=== PATIENT | male | born 1950 | race Caucasian/White ===

== ENCOUNTER → 2020-10-15 13:15 | Outpatient (CLI) | payer MEDICARE, SELFPAY ==
[2020-10-15 15:49] LABS: Alanine Aminotransferase 19 IU/L (<50); Albumin 4.1 g/dL (3.5-5.0); Albumin Globulin Ratio 1.4 (1.0-2.8); Alkaline Phosphatase 66 U/L (38-126); Aspartate Aminotransferase 28 IU/L (17-59); BUN Creatinine Ratio 22.5 (6-22); Bilirubin Total 0.4 mg/dL (0.2-1.3); Blood Urea Nitrogen 16 mg/dL (9-20); Calcium 10.3 mg/dL (8.4-10.2); Carbon Dioxide 26 mmol/L (22-32); Chloride 106 mmol/L (98-107); Cholesterol 209 mg/dL (140-199); Estimated Glomerular Filt Rate > 60.0 mL/min (>60); Glucose 90 mg/dL (80-110); HDL Cholesterol 55 mg/dL (40-60); HEMOLYSIS < 15 (0-50); LDL Cholesterol Calculated 131 mg/dL (<100); Potassium 4.4 mmol/L (3.4-5.1); Sodium 138 mmol/L (137-145); Total Protein 7.1 g/dL (6.3-8.2); Triglycerides 114 mg/dL (35-150)
[2020-10-15 16:19] LABS: Free T4, Direct Thyroxine 0.95 ng/dL (0.78-2.19); Prostate Specific Antigen Scrn 2.04 ng/mL (0.1-4.0)
[2020-10-15 16:33] LABS: Thyroid Stimulating Hormone 0.935 uIU/mL (0.47-4.68)
== END ==
PROVIDERS: PCP Internal Medicine; Referring Provider Internal Medicine; Visit Provider Internal Medicine
DX: I10 Essential (primary) hypertension (principal); Z12.5 Encounter for screening for malignant neoplasm of prostate; I25.10 Atherosclerotic heart disease of native coronary artery without angina pectoris; E03.9 Hypothyroidism, unspecified
CPT/HCPCS: 36415; 80053; 80061; 84439; 84443; G0103

== ENCOUNTER → 2021-02-14 12:06 | Outpatient (CLI) | payer MEDICARE, SELFPAY ==
[2021-02-14 13:20] LABS: Add Manual Diff / Slide Review NO; Basophils Absolute Auto 100 /uL (0-100); Basophils Percent Auto 1.3 % (0-2); Eosinophils Absolute Auto 300 /uL (0-450); Eosinophils Percent Auto 5.1 % (2-4); Hematocrit 45.1 % (41-53); Hemoglobin 15.3 g/dL (13.5-17.5); Lymphocytes Absolute Auto 2200 /uL (1100-4500); Lymphocytes Percent Auto 32.4 % (25-40); Mean Corpuscular HGB Conc 33.9 % (30-36); Mean Corpuscular Volume 91.7 fL (80-100); Monocytes Absolute Auto 700 /uL (0-900); Monocytes Percent Auto 10.1 % (3-14); Neutrophils Absolute Auto 3400 /uL (1500-7000); Neutrophils Percent Auto 51.1 % (50-75); Platelet Count 242 X10^3/uL (150-400); Red Blood Cell Count 4.92 X10^6/uL (4.5-5.9); White Blood Cell Count 6.7 X10^3/uL (4.5-11.0)
[2021-02-14 14:02] LABS: Erythrocyte Sedimentation Rate 2 MM/HR (0-15)
[2021-02-14 14:31] LABS: Free T4, Direct Thyroxine 0.91 ng/dL (0.78-2.19)
[2021-02-14 14:45] LABS: Thyroid Stimulating Hormone 0.754 uIU/mL (0.47-4.68)
[2021-02-14 14:50] LABS: Alanine Aminotransferase 19 IU/L (<50); Albumin 4.3 g/dL (3.5-5.0); Albumin Globulin Ratio 1.5 (1.0-2.8); Alkaline Phosphatase 63 U/L (38-126); Aspartate Aminotransferase 26 IU/L (17-59); BUN Creatinine Ratio 24.4 (6-22); Bilirubin Total 0.5 mg/dL (0.2-1.3); Blood Urea Nitrogen 20 mg/dL (9-20); Calcium 10.3 mg/dL (8.4-10.2); Carbon Dioxide 27 mmol/L (22-32); Chloride 105 mmol/L (98-107); Estimated Glomerular Filt Rate > 60.0 mL/min (>60); Globulin 2.9 g/dL (1.7-4.1); Glucose 94 mg/dL (80-110); HEMOLYSIS < 15 (0-50); Potassium 4.2 mmol/L (3.4-5.1); Sodium 138 mmol/L (137-145); Total Protein 7.2 g/dL (6.3-8.2)
[2021-02-14 15:20] LABS: Carcinoembryonic Antigen 0.8 ng/mL (0.1-3.0)
== END ==
PROVIDERS: PCP Internal Medicine; Referring Provider Internal Medicine; Visit Provider Internal Medicine
DX: E03.9 Hypothyroidism, unspecified (principal); K59.00 Constipation, unspecified
CPT/HCPCS: 36415; 80053; 82378; 84439; 84443; 85025; 85651

== ENCOUNTER → 2021-04-22 13:55 | Outpatient (CLI) | payer MEDICARE, SELFPAY ==
[2021-04-22 16:21] LABS: COVID19 -Nasal RAPID Negative (Negative)
== END ==
PROVIDERS: PCP Internal Medicine; Referring Provider Student in an Organized Health Care Education/Training Program; Visit Provider Student in an Organized Health Care Education/Training Program
DX: Z01.812 Encounter for preprocedural laboratory examination (principal); Z20.822 Contact with and (suspected) exposure to COVID-19
CPT/HCPCS: 87635; C9803

== ENCOUNTER 2021-04-23 12:56 | Day surgery (SDC) | payer MEDICARE, SELFPAY ==
--- NOTE | 2021-04-23 | PATH_ITS ---
[facility] Accession Number: [id number] . 01 Material submitted: . sigmoid colon - SIGMOID POLYP . 02 Diagnosis: Sigmoid Polyp: Hyperplastic polyp. MRV 04/25/2021 1532 Local . 02 Electronically signed: . Sparkle Schumacher MD, Pathologist NPI- [id number] . 01 Gross description: . SIGMOID POLYP: Received in formalin is 1 fragment(s) of finnegan, soft tissue measuring 0.3 x 0.2 x 0.2 cm submitted entirely in 1 cassette(s) /OMAR 04/24/20212003 Local . 02 Pathologist provided ICD-10: R19.4, K59.00, K63.5 . 02 CPT . 286850 Performed at: 01 [facility] [address] [id number] MD Garry Anne MD Phone: [phone] Performed at: 02 [facility] [address] [place], [place] [id number] MD Aicha Medina MD Phone: [phone]
[2021-04-23 13:26] VITALS: BP 129/88; PULSE 71; RESP 14; TEMP 36.7; O2SAT 97; BMI 28.4
--- NOTE | 2021-04-23 13:37 | PM.HP.1 ---
History of Present Illness History of Present Illness Date Patient Seen: 04/23/21 Time Patient Seen: 13:37 Chief complaint: SDC Narrative: Patient is a very pleasant 71-year-old male who presented for colonoscopy. He was last evaluated in the office on April 15, 2021. At that time he described change in bowel habits with worsening constipation this is a new symptom for him. His last colonoscopy was in 2012. 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 Sister Hx of CABG Sister History of heart disease Sister History of bipolar disorder Tobacco & Substance use: Smoking Status Never smoker Meds Home Medications and Allergies Home Medications Medication Instructions Recorded Confirmed Type aspirin 325 mg tablet 162.5 mg PO DAILY tab 09/13/20 02/14/21 History niacin 500 mg tablet 500 mg PO DAILY tab 02/14/21 02/14/21 History levothyroxine 50 mcg tablet 50 mcg PO DAILY #90 tab 03/25/21 Rx tadalafil 5 mg tablet 5 mg PO DAILY #90 tab 03/25/21 Rx Allergies Allergy/AdvReac Type Severity Reaction Status Date / Time [id number] Reductase AdvReac Severe Muscle Verified 02/14/21 11:37 Inhibitor pain/Inflammation [Irxtdjn-Pgi-Nye Reductase Inhibitor] Review of Systems Review of Systems ROS: Yes All systems reviewed with the patient and are negative except as otherwise documented Exam Const General: cooperative, healthy appearing, comfortable, well developed, well groomed and No acute distress HENMT Head: normocephalic and atraumatic Resp Effort & Inspection: normal respiratory effort, able to speak in complete sentences and normal respiratory pattern Auscultation: clear to auscultation bilaterally Cardio Rate: regular rate Rhythm: regular rhythm Heart Sounds: S1 normal and S2 normal GI Palpation: soft Extrem Right lower extremity: No no edema Left lower extremity: No no edema Assessment & Plan Assessment & Plan narrative: Colonoscopy today, further recommendations to follow Time Spent With Patient Critical Care time: I spent a total of [] minutes of critical care time on this patient's care today; this time is exclusive of procedural time.
[2021-04-23] MEDS: SODIUM CHLORIDE 0.9% 1,000 ML 70 ML IV (13:42)
--- NOTE | 2021-04-23 14:07 | P.OP.COLON_ITS ---
Operative Date/Time/Diagnoses Date of procedure: 04/23/21 Time of procedure: 13:49 Procedure Notes Procedure in detail: Surgeon: Keisha Dorantes DO Procedure: Colonoscopy with polypectomy Preoperative diagnosis: Change in bowel habits Constipation Last colonoscopy 2012 Postoperative diagnosis: 3 mm sigmoid colon polyp, removed with Jumbo forceps Grade 1 internal hemorrhoids Otherwise unremarkable colonoscopy Medications: Monitored anesthesia care, see Anesthesia note Preanesthesia Assessment An H and P was performed/updated and the Px?s ASA class is 2. The procedure was discussed in detail with the patient. The potential risks and complications including infection, bleeding, missed lesions, perforation, need for surgery in case of perforation, prolonged hospital stay, and were explained. A brief question and answer period was allotted and once all questions were answered, informed consent was obtained. The patient was brought back to the procedure room and placed on standard monitoring. The patient?s vital signs were monitored continuously throughout the entire procedure. Prior to starting, a timeout was performed to confirm the patient?s identity, allergies, medications, and procedure. Procedure in detail The patient was placed in left lateral decubitus position and once adequate sedation was obtained a ANIL was performed. The digital rectal examination did not reveal any palpable lesions. The tip of the colonoscope was placed in the anal canal and advanced without difficulty all the way to the cecum which was identified by the appendiceal orifice and the ileocecal valve. Careful examination of all colby of the colon was performed with irrigation of any residual stool. 3 mm polyp found in the sigmoid colon, removed with Jumbo forceps. Grade 1 internal hemorrhoids noted on retroflexion. Otherwise unrema rkable colonoscopy The patient tolerated the procedure well and will be brought back to the recovery area to be discharged once criteria are met. The prep was judged to be good/excellent and adequate to identify polyps less than 5 mm. The withdrawal time was 9min. Complications There were no complications and estimated blood loss was minimal. Recommendations: Resume previous diet Continue outPx medications Follow up pathology results Repeat colonoscopy after pathology results are reviewed Office follow up if persistent symptoms An emergency contact number was given to the patient for any complications related to the procedure
[2021-04-23 14:10] VITALS: BP 105/67; PULSE 64; RESP 16; TEMP 36.9; O2SAT 94
[2021-04-23 14:15] VITALS: BP 111/68; PULSE 62; RESP 16; O2SAT 93
[2021-04-23 14:20] VITALS: BP 108/70; PULSE 63; RESP 17; O2SAT 92
[2021-04-23 14:28] VITALS: BP 121/69; PULSE 68; RESP 23; TEMP 36.6; O2SAT 94
[2021-04-23 14:45] VITALS: BP 112/76; PULSE 67; RESP 16; TEMP 36.8; O2SAT 95
== END 2021-04-23 14:50 | disposition home or self-care (01) ==
PROVIDERS: PCP Internal Medicine; Referring Provider Student in an Organized Health Care Education/Training Program; Visit Provider Student in an Organized Health Care Education/Training Program
PROC: 0DJD8ZZ Inspection of Lower Intestinal Tract, Via Natural or Artificial Opening Endoscopic (ICD-10-PCS; CPT 45378; principal; 2021-04-23 14:00)
DX: K59.00 Constipation, unspecified (principal); E03.9 Hypothyroidism, unspecified; K64.0 First degree hemorrhoids; K63.5 Polyp of colon
CPT/HCPCS: 45380; J2704

== ENCOUNTER → 2022-06-08 12:57 | Outpatient (CLI) | payer MEDICARE, SELFPAY ==
[2022-06-08 13:29] LABS: Add Manual Diff / Slide Review NO; Basophils Absolute Auto 100 /uL (0-100); Eosinophils Absolute Auto 400 /uL (0-450); Eosinophils Percent Auto 5.2 % (2-4); Hematocrit 42.9 % (41-53); Hemoglobin 14.7 g/dL (13.5-17.5); Lymphocytes Absolute Auto 2100 /uL (1100-4500); Lymphocytes Percent Auto 30.4 % (25-40); Mean Corpuscular HGB Conc 34.3 % (30-36); Mean Corpuscular Hemoglobin 31.6 PG (26-34); Mean Corpuscular Volume 91.9 fL (80-100); Monocytes Absolute Auto 800 /uL (0-900); Monocytes Percent Auto 11.8 % (3-14); Neutrophils Absolute Auto 3500 /uL (1500-7000); Neutrophils Percent Auto 51.6 % (50-75); Platelet Count 242 X10^3/uL (150-400); Red Blood Cell Count 4.67 X10^6/uL (4.5-5.9); Red Cell Distribution Width 13.4 % (11.6-14.8); White Blood Cell Count 6.8 X10^3/uL (4.5-11.0)
[2022-06-08 14:42] LABS: Alanine Aminotransferase 25 IU/L (<50); Albumin Globulin Ratio 1.4 (1.0-2.8); Alkaline Phosphatase 74 U/L (38-126); Aspartate Aminotransferase 24 IU/L (17-59); BUN Creatinine Ratio 24.3 (6-22); Bilirubin Total 0.4 mg/dL (0.2-1.3); Blood Urea Nitrogen 18 mg/dL (9-20); Calcium 9.9 mg/dL (8.4-10.2); Carbon Dioxide 28 mmol/L (22-32); Chloride 102 mmol/L (98-107); Estimated Glomerular Filt Rate > 60 mL/min (>60); Globulin 2.9 g/dL (1.7-4.1); Glucose 90 mg/dL (80-110); HEMOLYSIS < 15 (0-50); Sodium 139 mmol/L (137-145); Total Protein 6.9 g/dL (6.3-8.2)
[2022-06-08 14:53] LABS: Potassium 4.3 mmol/L (3.4-5.1)
== END ==
PROVIDERS: PCP Internal Medicine; Referring Provider Internal Medicine; Visit Provider Internal Medicine
DX: Z01.812 Encounter for preprocedural laboratory examination (principal)
CPT/HCPCS: 36415; 80053; 85025

== ENCOUNTER → 2022-06-08 13:26 | Outpatient (CLI) | payer MEDICARE, SELFPAY ==
--- NOTE | 2022-06-08 13:28 | DI.CT.S_ITS ---
PROCEDURE: CT ABDOMEN PELVIS W CON INDICATIONS: Left lower quadrant pain TECHNIQUE: After the administration of oral and IV contrast, axial sections were acquired from the lung bases to the pubic symphysis. Coronal and sagittal reformats were performed. For radiation dose reduction, the following was used: automated exposure control, adjustment of mA and/or kV according to patient size. COMPARISON: None. FINDINGS: Image quality: Excellent. Lung bases: Unremarkable. Heart: No significant findings. ABDOMEN: Liver: Unremarkable. Gallbladder: Unremarkable. Biliary ducts: Unremarkable. Pancreas: Unremarkable. Spleen: Unremarkable. Adrenal Glands: Unremarkable. Kidneys and Ureters: Unremarkable. Stomach and Bowel: Stomach, small bowel loops, and colon are unremarkable. Diverticulosis. Normal appendix. Peritoneum: No abnormal intraperitoneal fluid. No free air. Ventral Wall: No hernia. Abdominal Nodes: No retroperitoneal or mesenteric adenopathy by size criteria. Vessels: Aorta and inferior vena cava are normal in size. PELVIS: Pelvic Organs: Prostatomegaly. Bladder: No stone. Pelvic Nodes: No enlarged lymph nodes. Miscellaneous: No inguinal hernias are seen. Bones: No suspicious lesion. No compression fracture. L3-L5 pedicle screw fixation with intervertebral body spacers. IMPRESSION: 1. No acute abnormality identified. No free fluid. 2. Diverticulosis. No diverticulitis. 3. No hydronephrosis. Dictated by: Marcelino Suarez M.D. on 06/08/2022 at 16:06 Approved by: Marcelino Suarez M.D. on 06/08/2022 at 16:10
== END ==
PROVIDERS: PCP Internal Medicine; Referring Provider Internal Medicine; Visit Provider Internal Medicine
DX: Z01.812 Encounter for preprocedural laboratory examination (principal); R10.32 Left lower quadrant pain; K57.90 Diverticulosis of intestine, part unspecified, without perforation or abscess without bleeding
CPT/HCPCS: 36415; 74177; 80053; 85025; Q9967

== ENCOUNTER → 2022-10-19 14:20 | Outpatient (CLI) | payer MEDICARE, SELFPAY ==
--- NOTE | 2022-10-19 14:22 | DI.RAD.S_ITS ---
PROCEDURE: XR LUMBAR SPINE MIN 4V INDICATIONS: low back pain TECHNIQUE: 5 views of the lumbar spine were acquired, including bilateral oblique views. COMPARISON: None. FINDINGS: Bones: 5 nonrib-bearing vertebrae are present. There are postsurgical changes L3 through L5 laminectomy, posterior fusion, and intervertebral disc spacer placement. Hardware appears intact and in appropriate position. There is grade 1 retrolisthesis L1 on two and L2 on three with severe disc height loss at these levels. No vertebral body compression fractures. No suspicious bony lesions. Soft tissues: Overlying bowel gas pattern is normal. No suspicious soft tissue calcifications. Oblique images: No visible pars defects. There is questionable lucency surrounding the right L5 pedicle screw on a single oblique view only. IMPRESSION: 1. Intact lumbar fusion hardware with possible lucency surrounding and L5 pedicle screw. Confirmation with CT imaging is recommended prior to surgical intervention. 2. L1 and L2 spondylolisthesis.. Dictated by: Whitney West M.D. on 10/19/2022 at 18:24 Approved by: Whitney West M.D. on 10/19/2022 at 18:27
== END ==
PROVIDERS: PCP Internal Medicine; Referring Provider Anesthesiology; Visit Provider Anesthesiology
DX: M43.16 Spondylolisthesis, lumbar region (principal); M54.50 Low back pain, unspecified; M47.26 Other spondylosis with radiculopathy, lumbar region; M79.605 Pain in left leg; Z98.1 Arthrodesis status
CPT/HCPCS: 72110; 99214

== ENCOUNTER → 2022-10-29 13:08 | Outpatient (CLI) | payer MEDICARE, SELFPAY ==
--- NOTE | 2022-10-29 13:09 | DI.MRI.S_ITS ---
PROCEDURE: MR LUMBAR SPINE WO CON INDICATIONS: Lumbar radiculopathy s/p L3-5 fusion, left leg pain TECHNIQUE: Noncontrast sagittal T1 spin echo and T2 fast echo, sagittal STIR, and T2 fast spin echo through the lumbar spine. In cases with scoliosis, additional coronal T2 fast spin echo may be performed. COMPARISON: Outside Facility, [facility], MRI L-SPINE W/O CONTRAST, 08/17/2016, 17:18. FINDINGS: Image quality: Excellent. Alignment and Curvature: 5 lumbar type vertebral bodies are present by plain film. Loss of normal lumbar lordosis is present. 6 mm of retrolisthesis L2 on L3. 5 mm of retrolisthesis of L1 on L2. 3 mm of retrolisthesis of L3 on L4. Bone Marrow: There is increased diffuse low T1/T2 signal intensity throughout the visualized marrow. There is new posterior fusion hardware at L3-L5. Interbody devices at L3-L4 and L4-L5 are present, new since the prior examination. There is mild reactive signal throughout the endplates of the lumbar and lower thoracic spine, most prominently at L1-L2 and L2-L3. No acute vertebral body compression fractures. Spinal Cord: Conus medullaris terminates at the L2 level. Visualized cord demonstrates normal signal and size. Paraspinous Soft Tissues: No paravertebral masses. T12-L1: Normal appearance. L1-L2: Moderate disc height loss and desiccation. Mild diffuse disc bulge. Mild facet and ligamentum flavum hypertrophy. Mild epidural lipomatosis. Mild canal stenosis. Moderate bilateral foraminal stenosis, increased from the prior examination. L2-L3: Moderate disc height loss and desiccation. Mild diffuse disc bulge. Mild facet and ligamentum flavum hypertrophy. Mild epidural lipomatosis. Mild canal stenosis. Moderate bilateral foraminal stenosis. No significant change. L3-L4: Interbody device placement. Posterior fusion. Mild facet and ligamentum flavum hypertrophy. Decreased, mild canal stenosis. Decreased, moderate bilateral foraminal stenosis. L4-L5: Interbody device placement. Posterior fusion. Mild bilateral facet hypertrophy. Decreased, mild canal stenosis. Decreased, moderate bilateral foraminal stenosis. L5-S1: Mild disc desiccation and diffuse disc bulge. Moderate bilateral facet hypertrophy. Increased, moderate canal stenosis. Increased, moderate to severe right and severe left foraminal stenosis. Left greater than right L5 nerve root compression. IMPRESSION: 1. Postsurgical sequelae. 2. Multilevel degenerative disc and facet disease, as well as ligamentum flavum hypertrophy and epidural lipomatosis. 3. Multilevel canal stenoses, worst at L5-S1 where there is moderate canal stenosis. 4. Multilevel foraminal stenoses, worst at L5-S1 where there is associated intraforaminal nerve root compression. Recommend correlation with clinical symptoms to ascertain relevance of this finding. 5. Increased low T1/T2 signal intensity throughout the visualized marrow. These findings may indicate red marrow reconversion. Clinical correlation and laboratory testing is recommended to exclude more aggressive etiologies such as malignancy. Dictated by: Sera Maddox M.D. on 10/29/2022 at 16:32 Approved by: Sera Maddox M.D. on 10/29/2022 at 16:38
== END ==
PROVIDERS: PCP Internal Medicine; Referring Provider Anesthesiology; Visit Provider Anesthesiology
DX: M51.16 Intervertebral disc disorders with radiculopathy, lumbar region (principal); M51.17 Intervertebral disc disorders with radiculopathy, lumbosacral region; M47.26 Other spondylosis with radiculopathy, lumbar region; M47.27 Other spondylosis with radiculopathy, lumbosacral region; M48.061 Spinal stenosis, lumbar region without neurogenic claudication; M48.07 Spinal stenosis, lumbosacral region; Z98.1 Arthrodesis status
CPT/HCPCS: 72148